=== PATIENT | male | born 1970 | race Caucasian/White ===

== ENCOUNTER 2021-02-26 20:30 | Emergency (ER) | payer SELFPAY ==
--- NOTE | 2021-02-26 20:30 | DI.CT_ITS ---
Exam(s) CT HEAD CERVICAL SPINE WO EXAM: CT HEAD CERVICAL SPINE WO CLINICAL HISTORY: trauma, intoxicated, head injury. TECHNIQUE: Imaging Protocol: Axial computed tomography images with coronal and sagittal reformatted images were created and reviewed COMPARISON: No exams were available for comparison FINDINGS: BRAIN: There skin clips over the posterior upper skull-scalp region. There are no skull fractures. No flui d in the paranasal sinuses and mastoid air cells. There is no evidence of intracranial hemorrhage, mass effect, or shift of midline structures. There are no extra-axial fluid collections. The ventricles are not enlarged or shifted and there is no blo od within the ventricular system nor within the basal cisterns. CERVICAL SPINE: There is no evidence of fracture nor listhesis. No significant prevertebral soft tissue swelling. Straightening of the cervical spine is noted which probably related to muscle spasm. Multilevel disc space narrowing most evident at C3-4 and C5-6 levels. Also bilateral Luschka joint o steophytes evident at these 2 levels.. There is no significant facet joint malalignment. No significant osseous lesions evident. IMPRESSION: No acute intracranial findings on this noninfused CT scan of the brain.Posterior scalp laceration wit h skin clips noted. No skull fractures. No evidence of cervical spine fracture, malalignment, nor acute compromise of the cervical spinal can al. RADIATION DOSE DELIVERED: 1,354.63mGy.cm Total DLP DATA REPOSITORY: All CT scans at this facility are submitted to the National Radiology Data Registry (NRDR) Dose Index Registry (DIR) with the [employer] (A[employer]). RADIATION OPTIMIZATION: All CT scans at this facility use at least one of these dose optimization te chniques: automated exposure control; mA and/or kV adjustment per patient size (includes targeted exa ms where dose is matched to clinical indication); or iterative reconstruction.
--- NOTE | 2021-02-26 20:30 | DI.CT_ITS ---
Exam(s) CT CHEST/ABD/PEL W EXAM: CT CHEST/ABD/PEL W CLINICAL HISTORY: trauma, intoxicated, head injury. TECHNIQUE: Imaging Protocol: Axial computed tomography images with coronal and sagittal reformatted images were created and reviewed CONTRAST MATERIAL: Intravenous: Omnipaque 350 Contrast volume:100 ml Oral: None COMPARISON: No exams were available for comparison FINDINGS: CHEST: LUNGS: Lungs are clear. No evidence of lung contusion or pleural effusion no pneumothorax. No incid ental consolidation or nodules. No significant focal findings in the trachea and mainstem bronchi.. MEDIASTINUM: No evidence of mediastinal hematoma. No incidental thyroid findings. No hilar nor medi astinal adenopathy. No axillary adenopathy. CARDIAC: Heart size is normal. There is no pericardial effusion.Thoracic aorta appears unremarkable. OSSEOUS: No fractures nor osseous lesions in the thorax.. ABDOMEN: There is no ascites. LIVER: No focal hepatic findings. No laceration. GALLBLADDER/BILIARY: No obvious gallbladder pathology. CBD is not dilated. PANCREAS: No evidence of pancreatic mass nor dilatation of the pancreatic duct. SPLEEN: No evidence of significant splenic trauma. No laceration. Spleen size is normal. No perisp lenic fluid. Splenic and portal veins are patent. ADRENALS: There are no significant adrenal masses. KIDNEYS: No evidence of significant renal trauma.. No incidental calculi nor solid masses. 1 cm cys t is noted in superior pole left kidney. ABDOMINAL AORTA: Abdominal aorta is intact. LYMPH NODES: There is no retroperitoneal nor paraaortic adenopathy. ABDOMINAL WALL: There is no evidence of significant anterior abdominal wall trauma. Incidentally not ed is a right 5th inguinal fat containing hernia as well as a fat containing umbilical hernia. No tr ansition point at this level. GI: There is no evidence of bowel obstruction.No evidence of mesenteric nor bowel wall hematoma. No ascites. PELVIS: LYMPH NODES: There is no intrapelvic nor inguinal adenopathy. GI: No evidence of appendicitis.No evidence of sigmoid diverticulitis. URINARY BLADDER: Urinary bladder is distended but otherwise intact. REPRODUCTIVE: Prostate not enlarged. OSSEOUS: No fractures. However, there is a well-defined sclerotic round bone lesion in the left albert c bone measuring approximately 11 x 11 millimeters and exhibiting a relatively hypodense core. This is nonexpansile. Has benign appearance. No other osseous lesions identified. IMPRESSION: 1. No evidence of significant trauma sequelae in the chest, abdomen, and pelvis. No significant visc eral nor mesenteric injury. 2. Fat containing umbilical and right inguinal hernias are noted. These do not contain bowel loops. There is no bowel obstruction. 3. No ascites. No pleural effusions. No pericardial effusion 4. Incidentally noted is an 11 x 11 millimeter benign-appearing sclerotic bone lesion in the left sundar ac bone adjacent to the left SI joint. RADIATION DOSE DELIVERED: 1,111.65mGy.cm Total DLP DATA REPOSITORY: All CT scans at this facility are submitted to the National Radiology Data Registry (NRDR) Dose Index Registry (DIR) with the [employer] (ACR). RADIATION OPTIMIZATION: All CT scans at this facility use at least one of these dose optimization te chniques: automated exposure control; mA and/or kV adjustment per patient size (includes targeted exa ms where dose is matched to clinical indication); or iterative reconstruction.
[2021-02-26 20:31] VITALS: BP 123/79; PULSE 82; RESP 16; TEMP 36.6; O2SAT 96
[2021-02-26] MEDS: Cellulose,Oxidized 2X3 PKT 1 EACH MC (20:36)
--- NOTE | 2021-02-26 20:39 | W.ED.GENAD ---
Discharge Plan Disposition Patient Disposition: HOME Condition: Good Discharge Details Clinical Impression: Head injury, Laceration of scalp, Alcohol intoxication Primary Care Provider: Jorje Baker ED Provider: Jorge Florentino Discharge Instructions Instructions: Head Injury (ED), Alcohol Intoxication (ED), Head Laceration (ED) Additional Instructions: You have layne in your scalp holding your laceration together. It is okay to shower but be careful shampooing or combing her hair. Layne should come out in 10 to 14 days. Watch for signs of infection which include increased pain, swelling, drainage. Return to ED if any evidence of infection, neurologic change, persistent vomiting, worsening headache. Medical Decision Making <CAROL Crook - Last Filed: 02/27/21 08:31> Care patient is an intoxicated 50-year-old male presenting today from outside facility where their CT scanner is down. Chief complaint is head injury. Patient was quickly evaluated by the emergency room physicians where they applied layne to large laceration the posterior aspect of the scalp. Mechanism of injury is fairly unclear. Patient reports that he got drunk and that's it. He is ANO x3 on arrival, does appear intoxicated and is slurring his words. He is moving all his extremities and was able to stand up unassisted from EMS stretcher to hours. Patient is in a cervical collar. Patient does have layne applied to the posterior aspect of his head but continues to have what appears to be arterial bleeding. Bleeding was immediately addressed by myself, please see procedure note. Some of the initial layne were removed and [id number] Vicryls were placed in areas of arterial bleeding. Pressure dressing applied over this. Plan to move forward with imaging. I not see any other areas of life-threatening trauma on exam at this time. Patient will remain cervical collar. Patient continued to have a small amount of oozing from head laceration. However, no further arterial bleeding is noted. TXA infused gauze placed over the wound and again pressure dressing applied. This is worked well for the bleeding. Labs reviewed. No leukocytosis. Hemoglobin is 13. No previous for comparison. Platelet count 435. Labs without significant abnormality. Patient is positive for THC. Ethyl alcohol 343. FINDINGS: Brain: Mild generalized atrophy for age. No extra-axial fluid collections. No evidence of acute intracranial hemorrhage. Ahmadi-white differentiation is well maintained. No CT evidence of large territory acute or subacute intracranial ischemia/infarct. No intracranial mass lesions. No midline shift or herniation. Cerebral ventricles: Ventricles normal. Paranasal sinuses: Visualized paranasal sinuses are clear. Mastoid air cells: Visualized mastoid air cells are clear. Orbital cavity: Visualized orbital contents demonstrate no evidence of acute abnormality. Vasculature: No asymmetric vascular hyperdensities suggestive of thrombosis are identified. Bones/joints: The calvarium and visualized facial bones are intact. Soft tissues: High midline parieto-occipital scalp soft tissue swelling/hematoma with skin layne in place. No underlying fracture or foreign body. Other findings: The IACs are grossly normal. The sella is grossly normal. IMPRESSION: 1. No acute intracranial process. No intracranial hemorrhage or mass effect. 2. High midline parieto-occipital scalp soft tissue swelling/hematoma with no underlying fracture or foreign body. 3. Mild generalized atrophy for age, nonspecific. FINDINGS: Lungs: Mild bronchiectasis suggesting COPD. No consolidation. No masses. Pleural spaces: Unremarkable. No pneumothorax. No pleural effusion. Heart: Unremarkable. No cardiomegaly. No pericardial effusion. Aorta: Unremarkable. No aortic aneurysm. Lymph nodes: Unremarkable. No enlarged lymph nodes. Bones/joints: Unremarkable. No acute fracture. Soft tissues: Unremarkable. IMPRESSION: 1. Mild bronchiectasis suggesting COPD 2. No pneumothorax, lung consolidation, or pleural fluid. 3. Chest wall musculoskeletal structures are unremarkable. 4. Thoracic spine mild degenerative features. No fractures evident. 5. No great vessel injury within the mediastinum evident. Normal heart size. No pericardial effusion. FINDINGS: Liver: Normal. No mass. Gallbladder and bile ducts: Normal. No calcified stones. No ductal dilation. Pancreas: Normal. No ductal dilation. Spleen: Normal. No splenomegaly. Adrenal glands: Normal. No mass. Kidneys and ureters: Normal. No hydronephrosis. Slightly prominent renal pelves bilaterally appear to represent variant extrarenal urinary pelvis morphology. Subcentimeter benign-appearing left upper pole renal cyst. See series 5, image 64. Right lower pole benign-appearing cyst measuring 7 mm on coronal image 54. Stomach and bowel: Unremarkable. No obstruction. No mucosal thickening. Appendix: No evidence of appendicitis. Intraperitoneal space: Unremarkable. No free air. No significant fluid collection. Vasculature: Unremarkable. No abdominal aortic aneurysm. Lymph nodes: Unremarkable. No enlarged lymph nodes. Urinary bladder: Unremarkable as visualized. Reproductive: Unremarkable as visualized. Bones/joints: Moderate degenerative disc space narrowing at L4-L5. 5 mm broad-based posterior disc bulge at this level. Moderate spinal stenosis. Benign sclerotic appearing focus in the left iliac wing adjacent to the SI joint. This measures 11 mm. Likely a small benign bone island. No acute fracture. Soft tissues: Fat containing umbilical hernia and right inguinal hernia without evidence of acute strangulation.. IMPRESSION: 1. No acute findings. 2. No free fluid in the abdomen or pelvis. 3. No visceral injury. 4. Fat containing umbilical hernia and right inguinal hernia without evidence of acute strangulation. Patient removed his cervical collar. He denies any midline tenderness, has full range of motion. Patient continues to be hemodynamically stable. Is currently sleeping. Patient patient's level of alcohol, patient should continue to monitor particularly as he had such a significant wound to the back of his head. He will continue monitoring until patient is more clinically sober as appropriate. At the end of my shift, care transition to Dr. Florentino with reevaluation and disposition pending. Patient did give me number for a friend but number was incorrect. Did not have any other contacts for him at this time. <Jorge Florentino MD - Last Filed: 02/27/21 06:44> Patient held overnight for sober exam in the morning. He has had no further bleeding from his laceration. He is awake and alert this morning with normal speech and normal gait. He remains neuro intact. He will be discharged so that he may return to [facility] where he staying with a friend. He will need layne out in 10 to 14 days. He should watch for any signs of infection. Return to ED for any neurologic change, persistent vomiting, worsening headache. Lab Data Lab results reviewed: Yes I reviewed the patient's lab results. HPI <CAROL Crook - Last Filed: 02/27/21 08:31> General Mode of arrival: EMS. Date/Time Provider Initiated Documentation: 02/26/21 20:39. Limitations to Documentation: no limitations. Information obtained by: patient, RN/MD (Dr. Haile) and RN notes reviewed. History of Present Illness 50 year old M presents to the emergency department with the chief complaint of head trauma, intoxicated, described as moderate, with intensity rated at 5. Quality is described as aching, and is localized to the head. Patient reports no radiation. Patient started experiencing this hour(s) and it has been constant. No relieving factors improve symptom(s), No exacerbating factors reported . Patient notes no other symptoms.. Patient did receive the following treatments prior to arrival, other (wound stapled on back of head) General Stated Complaint: HeadInjury EDUARD: 3 Review of Systems <CAROL Crook - Last Filed: 02/27/21 08:31> Unobtainable due to mental condition Integumentary/Breasts Skin/Breast: Reports as per HPI PFSH <CAROL Crook - Last Filed: 02/27/21 08:31> Social History Smoking/Tobacco Use Status: Never Smoking risk assessment performed?: Yes Alcohol Intake: current Alcohol Intake frequency: 3 or more drinks per day Alcohol type: beer Substance use type: does not use Do you feel safe at home: Yes Do you feel safe in your relationship?: Yes Exam <CAROL Crook - Last Filed: 02/27/21 08:31> Const General: cooperative, no acute distress and intoxicated appearing Nutritional Appearance: average body habitus and well nourished Orientation: alert, awake and oriented x3 HENMT Head: normal to inspection, no palpable skull fracture, no Fay's sign, laceration, no raccoon eyes and scalp lesion Head images: 1. 9 cm actively bleeding curvilinear laceration. Significant hematoma superior to this. No palpable fracture Ears: hearing grossly normal bilaterally, external ears normal and TM's normal bilaterally General nose exam: external nose normal Mouth: oral mucosae normal, lip normal and tongue normal Throat: posterior oropharynx normal Eyes General: appearance normal, both eyes and all related structures Visual Zimmer: normal visual zimmer by confrontation Alignment and Position: alignment normal Periorbital: periorbital findings normal Eyelids: eyelids normal Conjunctivae: conjunctivae normal Pupils: PERRL EOM: EOM intact bilaterally Neck Neck: normal visual inspection Chest Chest: normal inspection of the chest, normal palpation of entire chest wall, no crepitus and no localized rib tenderness Resp Effort & Inspection: normal respiratory effort, able to speak in complete sentences and no respiratory distress Auscultation: clear to auscultation bilaterally, no rales, no rhonchi and no wheezes Cardio Rate: regular rate Rhythm: regular rhythm Heart Sounds: S1 normal and S2 normal GI Inspection: normal to inspection, no abdominal wall ecchymosis, no edema and non-distended Palpation: soft, no hepatosplenomegaly, not firm, no guarding, no pulsatile masses, not rigid and nontender Auscultation: normal bowel sounds Back/Spine/Pelvis Back: no CVA tenderness Cervical Spine: collar present Thoracic/Lumbar Spine: thoracic and lumbar spine normal to inspection, thoraco-lumbar ROM normal, No thoraco-lumbar ROM limited, No thoraco-lumbar spasm and No thoracic spinal tenderness Pelvis: no pain with anterior-posterior compression and no pain with lateral compression Skin Trauma: laceration (scalp lesion) Neuro General: patient alert, patient awake, patient oriented x3, gait normal, tone normal and moves all extremities Cranial Nerves: CN's II-XI intact bilaterally Cognition: normal cognition Speech: abnormal speech slurred (consistent with intoxication) Gait: normal gait Motor: muscle tone normal throughout and strength 5/5 throughout Sensory Exam: no sensory deficits noted (no saddle paresthesias) Extrem General: normal to inspection, full ROM, capillary refill normal, no pedal edema and no calf tenderness Psych Appearance: grossly normal and well kempt Mental Status: mental status grossly normal Speech and Movement: speech and movement normal Course <CAROL Crook - Last Filed: 02/27/21 08:31> Vital Signs Vital signs: Pain Level 5 02/26/21 20:31 Procedures <CAROL Crook - Last Filed: 02/27/21 08:31> Laceration Laceration 1: Site: scalp Size (cm): 9 Description: linear Depth: simple, single layer Local Anesthetic: Lidocaine 1% and with Epi Amount of anesthesia used (mL): 8 Pre-repair: wound explored Skin layer closed with: other (layne) Number of sutures: 7 Subcutaneous layer closed with: vicryl Size: 4-0 Number of sutures: 2 Technique: other (figure 8) Sign Out <CAROL Crook Last Filed: 02/27/21 08:31> Sign Out Data: Sign Out Comment: Care transitioned to Dr. Florentino with disposition pending. Patient has large scalp wound from unknown injury. Intoxicated with ETOH 343. Sleeping. No other evidence of trauma. Easily arousable and appropriate. Last updated by Laila Gamino PA at 02/27/21 00:12
[2021-02-26] MEDS: Lactated Ringers 1,000 ML 1000 ML IV (20:55)
[2021-02-26 21:13] LABS: Abs Immature Grans 0.05 10^3/uL (0.0-0.06); Absolute Basophil Count 0.09 10^3/uL (0.0-0.2); Absolute Eosinophil Count 0.17 10^3/uL (0.0-0.7); Absolute Neutrophil Count 4.63 10^3/uL (1.2-6.7); Basophils % 1.2; Eosinophils % 2.2; HCT 39.1 % (40.0-50.0); Immature Grans % 0.7; Lymphocytes % 27.5; MCH 30.9 pg (27.0-33.0); MCHC 33.2 % (32.0-36.0); MCV 92.9 fL (80-95); MPV 8.7 fL (8.0-11.0); Monocytes % 7.9; Neutrophils % 60.5; Nucleated RBC 0 %; Platelet Count 435 10^3/uL (130-400); RBC 4.21 10^6/uL (4.36-5.78); RDW 13.3 % (11.8-14.1); RDW-SD 45.7 fL; WBC 7.64 10^3/uL (4.4-10.8)
[2021-02-26 21:40] LABS: ALT 36 U/L (16-63); AST 20 U/L (15-37); Albumin 3.7 g/dL (3.4-5.0); Alkaline Phosphatase 87 U/L (46-116); Anion Gap 13.4 mmol/L (3-11); BUN 7 mg/dL (7-18); Bilirubin, Total 0.1 mg/dL (0.2-1.0); CO2 22.6 mmol/L (21.0-32.0); CREATININE 0.9 mg/dL (0.70-1.30); Calcium 8.2 mg/dL (8.5-10.1); Chloride 107 mmol/L (98-107); Glucose 114 mg/dL (74-106); Magnesium 2.3 mg/dL (1.8-2.4); Potassium 3.6 mmol/L (3.5-5.1); Sodium 143 mmol/L (136-145); Total Protein 7.6 g/dL (6.4-8.2)
[2021-02-26 21:41] LABS: Lipase 113 U/L (73-393)
[2021-02-26 21:42] LABS: ETHANOL BLOOD 343.2 mg/dL (<3); Troponin I < 0.05 ng/mL (<0.06)
[2021-02-26] MEDS: Omnipaque 350 MG/ML 100 ML BTL IV (21:51)
--- NOTE | 2021-02-26 22:23 | DI.VRAD_ITS ---
PROCEDURE INFORMATION: Exam: CT Head Without Contrast Exam date and time: 02/26/2021 8:41 PM Age: 50 years old Clinical indication: Other: Trauma, intoxicated, head injury; Other: Trauma, head injury TECHNIQUE: Imaging protocol: Computed tomography of the head without contrast. Total images: 2019 Radiation optimization: All CT scans at this facility use at least one of these dose optimization techniques: automated exposure control; mA and/or kV adjustment per patient size (includes targeted exams where dose is matched to clinical indication); or iterative reconstruction. COMPARISON: No relevant prior studies available. FINDINGS: Brain: Mild generalized atrophy for age. No extra-axial fluid collections. No evidence of acute intracranial hemorrhage. Ahmadi-white differentiation is well maintained. No CT evidence of large territory acute or subacute intracranial ischemia/infarct. No intracranial mass lesions. No midline shift or herniation. Cerebral ventricles: Ventricles normal. Paranasal sinuses: Visualized paranasal sinuses are clear. Mastoid air cells: Visualized mastoid air cells are clear. Orbital cavity: Visualized orbital contents demonstrate no evidence of acute abnormality. Vasculature: No asymmetric vascular hyperdensities suggestive of thrombosis are identified. Bones/joints: The calvarium and visualized facial bones are intact. Soft tissues: High midline parieto-occipital scalp soft tissue swelling/hematoma with skin nain in place. No underlying fracture or foreign body. Other findings: The IACs are grossly normal. The sella is grossly normal. IMPRESSION: 1. No acute intracranial process. No intracranial hemorrhage or mass effect. 2. High midline parieto-occipital scalp soft tissue swelling/hematoma with no underlying fracture or foreign body. 3. Mild generalized atrophy for age, nonspecific. PROCEDURE INFORMATION: Exam: CT Cervical Spine Without Contrast Exam date and time: 02/26/2021 8:41 PM Age: 50 years old Clinical indication: Other: Trauma, intoxicated, head injury; Other: Trauma, head injury TECHNIQUE: Imaging protocol: Computed tomography images of the cervical spine without contrast. Radiation optimization: All CT scans at this facility use at least one of these dose optimization techniques: automated exposure control; mA and/or kV adjustment per patient size (includes targeted exams where dose is matched to clinical indication); or iterative reconstruction. COMPARISON: No relevant prior studies available. FINDINGS: Bones/joints: Craniocervical alignment is normal. The odontoid is intact. No fractures. Straightening of cervical lordosis suggesting a possible element of muscular strain/spasm. Cervical alignment is otherwise well maintained. No blastic or lytic lesions. Discs/Spinal canal/Neural foramina: The occipital condyles are intact. Mild degenerative sclerosis and spurring at the atlantodens interval. No jumped or perched facets. Mild-moderate disc space narrowing C3-C4 through C5-C6 with mild marginal spurring. No compressive soft disc protrusion or extrusion is evident by CT. Mild central canal stenosis C5-C6 with AP thecal sac dimension 9 mm. There is right foraminal stenosis which is moderate at C3-C4, and moderate-severe at C5-C6. There is left foraminal stenosis which is moderate at C3-C4 and moderate-severe at C5-C6. Thyroid: The visualized thyroid gland is unremarkable. Lungs: Visualized pulmonary apices are clear. Soft tissues: Paraspinous soft tissues are unremarkable without significant soft tissue swelling or soft tissue hematoma. IMPRESSION: 1. No evidence of fracture or acute traumatic subluxation. 2. Straightening of cervical lordosis suggesting a possible element of muscular strain/spasm. Cervical alignment is otherwise well maintained. 3. Degenerative changes with mild central canal stenosis at C5-C6 and multilevel bilateral foraminal stenoses as detailed above. Dictated and Authenticated by: Anatoliy Peralta MD. Ordering:SAM Ulloa MD
--- NOTE | 2021-02-26 22:34 | DI.VRAD_ITS ---
PROCEDURE INFORMATION: Exam: CT Chest With Contrast; Diagnostic Exam date and time: 02/26/2021 8:41 PM Age: 50 years old Clinical indication: Other: Trauma TECHNIQUE: Imaging protocol: Diagnostic computed tomography of the chest with contrast. 3D rendering (Not supervised by radiologist): MIP and/or 3D reconstructed images were created by the technologist. Contrast material: OMNIPAQUE 350; Contrast volume: 100 ml; Contrast route: INTRAVENOUS (IV); COMPARISON: No relevant prior studies available. FINDINGS: Lungs: Mild bronchiectasis suggesting COPD. No consolidation. No masses. Pleural spaces: Unremarkable. No pneumothorax. No pleural effusion. Heart: Unremarkable. No cardiomegaly. No pericardial effusion. Aorta: Unremarkable. No aortic aneurysm. Lymph nodes: Unremarkable. No enlarged lymph nodes. Bones/joints: Unremarkable. No acute fracture. Soft tissues: Unremarkable. IMPRESSION: 1. Mild bronchiectasis suggesting COPD 2. No pneumothorax, lung consolidation, or pleural fluid. 3. Chest wall musculoskeletal structures are unremarkable. 4. Thoracic spine mild degenerative features. No fractures evident. 5. No great vessel injury within the mediastinum evident. Normal heart size. No pericardial effusion. PROCEDURE INFORMATION: Exam: CT Abdomen And Pelvis With Contrast Exam date and time: 02/26/2021 8:41 PM Age: 50 years old Clinical indication: Other: Trauma TECHNIQUE: Imaging protocol: Computed tomography of the abdomen and pelvis with contrast. 3D rendering (Not supervised by radiologist): MIP and/or 3D reconstructed images were created by the technologist. Radiation optimization: All CT scans at this facility use at least one of these dose optimization techniques: automated exposure control; mA and/or kV adjustment per patient size (includes targeted exams where dose is matched to clinical indication); or iterative reconstruction. Contrast material: OMNIPAQUE 350; Contrast volume: 100 ml; Contrast route: INTRAVENOUS (IV); COMPARISON: No relevant prior studies available. FINDINGS: Liver: Normal. No mass. Gallbladder and bile ducts: Normal. No calcified stones. No ductal dilation. Pancreas: Normal. No ductal dilation. Spleen: Normal. No splenomegaly. Adrenal glands: Normal. No mass. Kidneys and ureters: Normal. No hydronephrosis. Slightly prominent renal pelves bilaterally appear to represent variant extrarenal urinary pelvis morphology. Subcentimeter benign-appearing left upper pole renal cyst. See series 5, image 64. Right lower pole benign-appearing cyst measuring 7 mm on coronal image 54. Stomach and bowel: Unremarkable. No obstruction. No mucosal thickening. Appendix: No evidence of appendicitis. Intraperitoneal space: Unremarkable. No free air. No significant fluid collection. Vasculature: Unremarkable. No abdominal aortic aneurysm. Lymph nodes: Unremarkable. No enlarged lymph nodes. Urinary bladder: Unremarkable as visualized. Reproductive: Unremarkable as visualized. Bones/joints: Moderate degenerative disc space narrowing at L4-L5. 5 mm broad-based posterior disc bulge at this level. Moderate spinal stenosis. Benign sclerotic appearing focus in the left iliac wing adjacent to the SI joint. This measures 11 mm. Likely a small benign bone island. No acute fracture. Soft tissues: Fat containing umbilical hernia and right inguinal hernia without evidence of acute strangulation.. IMPRESSION: 1. No acute findings. 2. No free fluid in the abdomen or pelvis. 3. No visceral injury. 4. Fat containing umbilical hernia and right inguinal hernia without evidence of acute strangulation. Dictated and Authenticated by: Adam Hudson MD. Ordering:SAM Ulloa MD
[2021-02-26 22:37] LABS: Bilirubin Negative (Negative); Blood Trace-lysed (Negative); Clarity Clear (Clear); Glucose Negative (Negative); Ketones Negative (Negative); Leukocyte Esterase Negative (Negative); Nitrite Negative (Negative); Specific Gravity <= 1.005 (1.005-1.025); Urobilinogen 0.2 EU/dL (Up TO 0.2); pH 6.5 (5-8)
[2021-02-26 22:49] LABS: Bacteria Rare HPF (Negative); C & S Indicated? No; Casts Negative LPF (Negative); Crystals Negative HPF (Negative); Epithelial Cells Rare HPF (Negative); Mucus Negative (Negative); RBC 0-2 HPF (0-2); WBC Negative HPF (0-5)
[2021-02-26 23:04] LABS: *AMPHETAMINES SCREEN URINE Negative (Negative); *BARBITURATES SCREEN URINE Negative (Negative); *BENZODIAZEPINES SCREEN URINE Negative (Negative); Cannabinoids THC Positive (Negative); Cocaine Screen,Urine Negative (Negative); METHADONE URINE SCREEN Negative (Negative); OPIATES URINE SCREEN Negative (Negative)
[2021-02-26 23:13] LABS: Tricyclic Antidepressants Negative (Negative)
[2021-02-26 23:57] VITALS: PULSE 71; RESP 16; O2SAT 95
[2021-02-27] VITALS (26 sets, daily range): BP systolic 104–136; BP diastolic 58–90; PULSE 66–90; RESP 16; TEMP 36.5; O2SAT 94–100
== END 2021-02-27 10:17 | disposition home or self-care (01) ==
PROVIDERS: Physician Assistant; Emergency Provider Emergency Medicine; PCP Internal Medicine
DX: S01.01XA Laceration without foreign body of scalp, initial encounter (principal); X58.XXXA Exposure to other specified factors, initial encounter; F10.129 Alcohol abuse with intoxication, unspecified; Y90.8 Blood alcohol level of 240 mg/100 ml or more
CPT/HCPCS: 12004; 74177; 80053; 80307; 83690; 96360; 96361; 99285; 70450; 71260; 72125; 80320; 81003; 81015; 83735; 84484; 85025; 99284; J3490